=== PATIENT | male | born 2000 | race Caucasian/White ===

== ENCOUNTER 2018-10-17 18:59 | Emergency (ER) | payer MEDICAID ==
[~2018-10-17] VITALS: Ht 170.2 cm; Wt 73.0 kg
[~2018-10-17 18:59] MED LIST: advil; tylenol
[2018-10-17 19:02] VITALS: BP 113/57
--- NOTE | 2018-10-17 19:11 | NUR ---
PT TO ED WITH C/O RT EAR PAIN X 2 DAYS. PT DENIES DRAINAGE OR TRAUMA TO EAR. NO HEARING LOSS. PT PLACED INTO BED, PENDING MD FERNÁNDEZ. PMH--DENIES RX--DENIES
--- NOTE | 2018-10-17 19:35 | NUR ---
Dr. Mejia evaluating patient at bedside.
[2018-10-17 19:48] VITALS: BP 113/57
--- NOTE | 2018-10-17 19:48 | NUR ---
Patient discharged with v/s stable. Written and verbal after care instructions given and explained. Patient alert, oriented and verbalized understanding of instructions. Ambulatory with steady gait. All questions addressed prior to discharge. ID band removed. Patient advised to follow up with PMD. Rx of MOTRIN, CORTISPORIN EAR DROPS, TRAMADOL given. Patient educated on indication of medication including possible reaction and side effects. Opportunity to ask questions provided and answered.
== END 2018-10-17 19:48 | disposition home or self-care (01) ==
LOC: MED 18:59
DX: H66.91 Otitis media, unspecified, right ear (principal); Z79.1 Long term (current) use of non-steroidal anti-inflammatories (NSAID)
CPT/HCPCS: 99283

== ENCOUNTER 2021-05-29 15:13 | Emergency (ER) | payer SELFPAY ==
[~2021-05-29] VITALS: Ht 167.6 cm; Wt 75.3 kg
[2021-05-29 15:54] VITALS: BP 136/60
[2021-05-29] MEDS ORDERED: IBUP-2213 PO (18:26)
[2021-05-29] MEDS ORDERED: ACET-2619 PO (18:26)
[2021-05-29 19:12] VITALS: BP 136/60
--- NOTE | 2021-05-29 19:12 | NUR ---
Patient discharged with v/s stable. Written and verbal after care instructions given and explained. Patient alert, oriented and verbalized understanding of instructions. Ambulatory with steady gait. All questions addressed prior to discharge. ID band removed. Patient advised to follow up with PMD. Rx of IBUPROFEN, ACTEMINOPHEN given. Patient educated on indication of medication including possible reaction and side effects. Opportunity to ask questions provided and answered.
== END 2021-05-29 19:12 | disposition home or self-care (01) ==
LOC: MED 15:13
DX: S62.396A Other fracture of fifth metacarpal bone, right hand, initial encounter for closed fracture (principal); X50.9XXA Other and unspecified overexertion or strenuous movements or postures, initial encounter; Y93.66 Activity, soccer; Y92.89 Other specified places as the place of occurrence of the external cause; Y99.8 Other external cause status
CPT/HCPCS: 73120; 73130; 99284